=== PATIENT | male | born 2000 | race African-American/Black ===

== ENCOUNTER 2024-10-01 08:10 | Emergency (ER) | payer SELFPAY ==
[2024-10-01] MEDS ORDERED: Dexamethasone 10 MG/ML VIAL ONE (09:10)
[2024-10-01] MEDS ORDERED: Albuterol 2.5 MG (0.5 mL) NEB ONE (09:10)
[2024-10-01] MEDS ORDERED: Ipratropium Bromide 2.5 ml Neb ONE (09:10)
== END 2024-10-01 09:50 | disposition home or self-care (01) ==
LOC: ERS 08:10
DX: J45.901 Unspecified asthma with (acute) exacerbation (principal); J06.9 Acute upper respiratory infection, unspecified; Z55.6 Problems related to health literacy
CPT/HCPCS: 71046; 87428; J1100; J7611; J7644

== ENCOUNTER 2024-11-12 08:36 | Emergency (ER) | payer SELFPAY ==
[2024-11-12] MEDS ORDERED: Ketorolac Tromethamine 30 MG (1 mL) VIAL ONE (08:51)
[2024-11-12] MEDS ORDERED: Ondansetron PF 4 MG/2 ML Vial ONE (08:54)
[2024-11-12 09:03] LABS: #Basophils 0.04 10x3/uL (0.0-0.2); %Basophils 0.2 % (0.0-1.0); %Eosinophils 0.5 % (0.0-10.0); %Lymphocytes 10.6 % (21.0-51.0); %Neutrophils 78.2 % (42.0-75.0); Hematocrit 48.2 % (42.0-52.0); Hemoglobin 16.4 g/dL (14.0-18.0); Mean Corpuscular Hemoglobin 29.9 pg (27.0-31.0); Platelet Count 183 10x3/uL (130-400); RBC Distribution Width 13.1 % (11.5-14.5); Red Blood Cell (RBC) Count 5.48 mill/uL (4.70-6.10)
[2024-11-12 09:37] LABS: ALT (SGPT) 18 U/L (8-55); AST (SGOT) 19 U/L (5-34); Albumin 4.3 g/dL (3.5-5.0); Alkaline Phosphatase 61 U/L (40-110); Anion Gap 14 mmol/L (10-20); BUN (Urea Nitrogen) 16 mg/dL (8.9-20.6); Bilirubin, Total 0.8 mg/dL (0.2-1.2); Calc. Creatinine Clearance 0 mL/min (70-130); Calcium 9.1 mg/dL (7.8-10.44); Carbon Dioxide 22 mmol/L (22-29); Chloride 106 mmol/L (98-107); Estimated GFR 101; Globulin 3.3 g/dL (2.4-3.5); Glucose 102 mg/dL (70-105); Lipase 9 U/L (8-78); Potassium 3.9 mmol/L (3.5-5.1); Protein, Total 7.6 g/dL (6.0-8.3); Sodium 138 mmol/L (136-145)
[2024-11-12 10:27] LABS: Bacteria/HPF None Seen HPF (None Seen); Bilirubin Negative (Negative); Blood, Urine Trace (Negative); CAUTI Indications for Culture Dysuria,urgency,freq; Clarity Clear (Clear); Glucose, Urine (Dipstick) Normal (Negative); Ketone, Urine Negative (Negative); Leukocyte Negative Leu/uL (Negative); Nitrite Negative (Negative); Protein, Urine (Dipstick) 10 mg/dL (Neg-Trace); RBC/HPF 0-3 HPF (0-3); Squamous Epithelial None Seen HPF (0-3); Urobilinogen Normal mg/dL (Less than 2); WBC/HPF 0-3 HPF (0-3)
[2024-11-12 10:34] LABS: Urine Culture Reflex No No
== END 2024-11-12 11:14 | disposition home or self-care (01) ==
LOC: ERS 08:36
DX: R10.11 Right upper quadrant pain (principal); R10.811 Right upper quadrant abdominal tenderness; J45.909 Unspecified asthma, uncomplicated; Z79.899 Other long term (current) drug therapy
CPT/HCPCS: 71045; 74176; 76705; 80053; 81001; 82550; 83690; 85025; 96374; 96375; J1885; J2405